=== PATIENT | male | born 1990 | race Caucasian/White ===

== ENCOUNTER 2019-01-08 12:35 | Emergency (ER) | payer SELFPAY ==
[~2019-01-08] VITALS: Ht 177.8 cm; Wt 138.6 kg
[2019-01-08] MEDS ORDERED: IBUPROFEN 800 MG TABLET PO ONE (14:00)
[2019-01-08 15:11] VITALS: BP 122/69
== END 2019-01-08 15:39 | disposition home or self-care (01) ==
LOC: EMS 12:35
DX: S62.617A Displaced fracture of proximal phalanx of left little finger, initial encounter for closed fracture (principal); W51.XXXA Accidental striking against or bumped into by another person, initial encounter; Y93.61 Activity, american tackle football; Y92.89 Other specified places as the place of occurrence of the external cause; Y99.8 Other external cause status

== ENCOUNTER 2020-06-15 10:55 | Emergency (ER) | payer SELFPAY ==
[~2020-06-15] VITALS: Ht 177.8 cm; Wt 100.0 kg
[2020-06-15 10:57] VITALS: BP 134/77
[2020-06-15] MEDS ORDERED: ACET-66 PO (10:58)
[2020-06-15] MEDS ORDERED: METHOCARBAMOL 500 MG TABLET PO ONE (11:30)
== END 2020-06-15 12:53 | disposition home or self-care (01) ==
LOC: EMS 11:03
DX: M54.5 Low back pain (principal); R03.0 Elevated blood-pressure reading, without diagnosis of hypertension
CPT/HCPCS: 72100

== ENCOUNTER 2020-07-01 22:02 | Emergency (ER) | payer MEDICAID ==
[~2020-07-01] VITALS: Ht 177.8 cm; Wt 131.8 kg
[~2020-07-01 22:02] MED LIST: ACET-66 PO
[2020-07-01] MEDS ORDERED: ACETAMINOPHEN 500 MG TABLET PO ONE (22:30)
[2020-07-01] MEDS ORDERED: SODIUM CHLORIDE 0.9% 1,000 ML IV ONE (22:30)
[2020-07-02] MEDS ORDERED: KETOROLAC TROMETHAMINE 30 MG/ML VIAL IVP ONE (00:30)
[2020-07-02 01:23] LABS: BASOPHILS % (AUTO) 0.2 % (0.0-2.0); EOSINOPHILS % (AUTO) 0.1 % (1.0-6.0); HEMATOCRIT 40.6 % (41-53); HEMOGLOBIN 13.9 g/dL (13.5-17.5); LYMPHOCYTES # (AUTO) 1.3 K/uL (1.0-4.8); LYMPHOCYTES % (AUTO) 22.3 % (22.0-44.0); MEAN CORPUSCULAR HEMOGLOBIN 27.7 pg (26.0-34.0); MEAN CORPUSCULAR HGB CONC 34.1 G/dL (31.0-37.0); MEAN CORPUSCULAR VOLUME 81 fL (80-100); MONOCYTES # (AUTO) 0.6 K/uL (0.1-1.0); MONOCYTES % (AUTO) 10.3 % (2.0-9.0); NEUTROPHILS # (AUTO) 3.9 K/uL (1.8-7.7); NEUTROPHILS % (AUTO) 67.1 % (40.0-70.0); PLATELET COUNT (AUTO) 183 K/uL (150-450); RED BLOOD CELL COUNT(AUTO) 5.01 MIL/uL (4.50-5.90); RED CELL DISTRIBUTION WIDTH 13.7 % (11.5-14.5)
[2020-07-02 01:31] LABS: ANION GAP 7 mmol/L (8-16); CALCIUM, TOTAL 8.4 mg/dL (8.8-10.5); CARBON DIOXIDE 26 mmol/L (22-29); CHLORIDE 103 mmol/L (98-107); CREATININE 1.07 mg/dL (0.60-1.30); GLOMERULAR FILTR. RATE CALC > 60 mL/min (>60); GLUCOSE,RANDOM 98 mg/dL (70-110); POTASSIUM 3.5 mmol/L (3.5-5.1); SODIUM SERUM 136 mmol/L (136-145); UREA NITROGEN, BLOOD 12 mg/dL (7-18)
[2020-07-02 01:56] LABS: ALANINE AMINOTRANSFERASE 29 U/L (12-78); ALBUMIN 3.6 g/dL (3.4-5.0); ALKALINE PHOSPHATASE 87 U/L (46-116); ASPARTATE AMINOTRANSFERASE 19 U/L (15-37); BILIRUBIN,TOTAL 0.5 mg/dL (0.1-1.0); CREATINE KINASE, TOTAL ONLY 91 U/L (39-308); TOTAL PROTEIN, SERUM 7.7 g/dL (6.4-8.2)
[2020-07-02] MEDS ORDERED: AZITHROMYCIN 500 MG TABLET PO ONE (04:00)
[2020-07-02 04:30] VITALS: BP 101/50
== END 2020-07-02 04:50 | disposition home or self-care (01) ==
LOC: EMS 22:02
DX: U07.1 COVID-19 (principal); J12.89 Other viral pneumonia; R51 Headache; R05 Cough; R50.9 Fever, unspecified
CPT/HCPCS: 36415; 80053; 82550; 83605; 85025; 87040; 96374; 99285; J1885; J7030; U0003

== ENCOUNTER 2021-05-22 19:41 | Emergency (ER) | payer MEDICAID ==
[~2021-05-22] VITALS: Ht 177.8 cm; Wt 136.4 kg
[~2021-05-22 19:41] MED LIST changes: +ACET-3385 PO; -ACET-66 PO
[2021-05-22 20:35] VITALS: BP 125/68
== END 2021-05-22 20:53 | disposition home or self-care (01) ==
LOC: EMS 19:42
DX: M54.5 Low back pain (principal); Z79.899 Other long term (current) drug therapy
CPT/HCPCS: 99283; Z7502

== ENCOUNTER 2023-03-19 23:47 | Emergency (ER) | payer MEDICAID ==
[~2023-03-19] VITALS: Ht 177.8 cm; Wt 77.3 kg
[2023-03-20] MEDS ORDERED: BACITRACIN 0.9 GM PACKET OINTMENT TP ONE (01:15)
[2023-03-20] MEDS ORDERED: ACETAMINOPHEN 500 MG TABLET PO ONE (01:15)
[2023-03-20] MEDS ORDERED: BACITRACIN 28 GM OINTMENT TP ONE (01:15)
[2023-03-20] MEDS ORDERED: SODIUM CHLORIDE 0.9% 1,000 ML IV ONE (01:15)
[2023-03-20] MEDS ORDERED: PERTUSS(ACELL),DIPH,TET VAC/PF 0.5 ML SYRINGE IM. ONE (01:15)
[2023-03-20 01:29] LABS: ANION GAP 7 mmol/L (8-16); CALCIUM, TOTAL 8.4 mg/dL (8.8-10.5); CARBON DIOXIDE 28 mmol/L (22-29); CHLORIDE 103 mmol/L (98-107); CREATININE 0.91 mg/dL (0.60-1.30); GLOMERULAR FILTR. RATE CALC > 60 mL/min (>60); GLUCOSE,RANDOM 120 mg/dL (70-110); POTASSIUM 3.5 mmol/L (3.5-5.1); SODIUM SERUM 138 mmol/L (136-145); UREA NITROGEN, BLOOD 8 mg/dL (7-18)
[2023-03-20 01:33] LABS: INR 1.1 (0.9-1.1); PROTHROMBIN TIME 11.3 SEC (9.4-11.6)
[2023-03-20 01:38] LABS: LACTIC ACID 1.8 mmol/L (0.4-2.0)
[2023-03-20 01:54] LABS: ALANINE AMINOTRANSFERASE 140 U/L (12-78); ALBUMIN 2.7 g/dL (3.4-5.0); ALKALINE PHOSPHATASE 130 U/L (46-116); ASPARTATE AMINOTRANSFERASE 66 U/L (15-37); BILIRUBIN,TOTAL 0.7 mg/dL (0.1-1.0); CREATINE KINASE, TOTAL ONLY 144 U/L (39-308); PHOSPHORUS 3.6 mg/dL (2.5-4.9); TOTAL PROTEIN, SERUM 6.5 g/dL (6.4-8.2)
[2023-03-20 02:01] LABS: BASOPHILS % (AUTO) 0.9 % (0.0-2.0); EOSINOPHILS % (AUTO) 1.3 % (1.0-6.0); HEMOGLOBIN 11.5 g/dL (13.5-17.5); LYMPHOCYTES # (AUTO) 3.2 K/uL (1.0-4.8); LYMPHOCYTES % (AUTO) 30.3 % (22.0-44.0); MEAN CORPUSCULAR HEMOGLOBIN 27.7 pg (26.0-34.0); MEAN CORPUSCULAR HGB CONC 33.8 G/dL (31.0-37.0); MEAN CORPUSCULAR VOLUME 82 fL (80-100); MONOCYTES % (AUTO) 9.5 % (2.0-9.0); NEUTROPHILS # (AUTO) 6.2 K/uL (1.8-7.7); PLATELET COUNT (AUTO) 356 K/uL (150-450); RED BLOOD CELL COUNT(AUTO) 4.15 MIL/uL (4.50-5.90); RED CELL DISTRIBUTION WIDTH 16.5 % (11.5-14.5)
[2023-03-20] MEDS ORDERED: SODIUM CHLORIDE 0.9% 100 ML ONE (02:11)
[2023-03-20] MEDS ORDERED: IOHEXOL 350 MG/ML 100 ML VIAL ONE (02:11)
[2023-03-20 02:18] LABS: B-TYPE NATRIURETIC PEPTIDE 6 pg/mL (0-100)
[2023-03-20] MEDS ORDERED: CeFAZolin 1 GM/DEXTROSE 50 ML IV ONE (04:00)
[2023-03-20] MEDS ORDERED: MORPHINE SULFATE 4 MG/ML SYRINGE IVP ONE (04:45)
[2023-03-20 04:57] VITALS: BP 126/70
== END 2023-03-20 05:20 | disposition short-term general hospital (02) ==
LOC: EMS 23:48
DX: S22.41XA Multiple fractures of ribs, right side, initial encounter for closed fracture (principal); J93.9 Pneumothorax, unspecified; J94.2 Hemothorax; Y04.8XXA Assault by other bodily force, initial encounter; Y93.89 Activity, other specified; Y92.89 Other specified places as the place of occurrence of the external cause; Y99.8 Other external cause status
CPT/HCPCS: 99291; 80053; 82550; 83605; 83735; 83880; 84100; 84484; 85025; 85610; 85730; 36415; 70450; 96365; 71045; 96361; 96375; 73090 ×2; 73110 ×2; 73130 ×2; 71260; 72125; 74160; 90715; 93005; 72193; J0690; J2270; Q9967; J7030; J7050

== ENCOUNTER 2024-06-09 15:02 | Emergency (ER) | payer MEDICAID, OTHER ==
[~2024-06-09] VITALS: Ht 177.8 cm; Wt 132.7 kg
[2024-06-09 15:19] VITALS: BP 141/84; PULSE 66; RESP 18; TEMP 98
[2024-06-09] MEDS: ACETAMINOPHEN 500 MG TABLET PO ONE (15:54)
[2024-06-09] MEDS: LIDOCAINE 5% TRANSDERMAL PATCH TD ONE (15:54)
[2024-06-09] MEDS ORDERED: ACET-3385 PO (17:10)
[2024-06-09] MEDS ORDERED: IBUP-1492 PO (17:10)
== END 2024-06-09 17:41 | disposition home or self-care (01) ==
LOC: EMS 15:08
DX: S30.0XXA Contusion of lower back and pelvis, initial encounter (principal); S09.90XA Unspecified injury of head, initial encounter; W19.XXXA Unspecified fall, initial encounter; X58.XXXA Exposure to other specified factors, initial encounter; Y93.89 Activity, other specified; Y92.89 Other specified places as the place of occurrence of the external cause; Y99.8 Other external cause status
CPT/HCPCS: 70450; 72125; 72131; 99284